=== PATIENT | male | born 1985 | race African-American/Black ===

== ENCOUNTER 2018-11-03 14:28 | Emergency (ER) | payer MEDICAID ==
[~2018-11-03] VITALS: Ht 177.8 cm; Wt 63.0 kg
[2018-11-03 14:57] VITALS: BP 134/75
== END 2018-11-03 17:00 | disposition left against medical advice (07) ==
LOC: ER 15:40
DX: R51 Headache (principal); Z53.21 Procedure and treatment not carried out due to patient leaving prior to being seen by health care provider